=== PATIENT | female | born 1975 | race Caucasian/White ===

== ENCOUNTER 2016-07-02 14:56 | Emergency (ER) | payer BC, OTHER ==
[~2016-07-02] VITALS: Ht 160 cm; Wt 109.2 kg
[~2016-07-02 14:56] MED LIST: AMPH30CA3 PO; DULO60CA44 PO; LEVO200T PO
[2016-07-02 14:59] VITALS: TEMP 36.4; Ht 160 cm; Wt 109.2 kg
[2016-07-02] MEDS ORDERED: SULFAMETHOXAZOLE/TRIMETHOPRIM DS 800/160MG TAB PO STA (15:19)
[2016-07-02] MEDS ORDERED: SULF800T23 PO (15:28)
[2016-07-02] MEDS ORDERED: CEPH500C PO (15:28)
--- NOTE | 2016-07-02 15:28 | EMERGENCY ROOM VISIT NOTE ---
ED Visit Note First contact with patient: 15:10 Chief Complaint: Boil, On Groin Area History of Present Illness: Patient is a 40-year-old female who presents to the emergency Department for evaluation of a possible boil or abscess in the groin. She noticed redness swelling over the past 3 days. It has progressively worsened. There is been no discharge or drainage. She is had multiple abscesses in the past including the axilla as well as the groin area. She rates her discomfort as a 4/10. She is tried nothing [id number]-hlu-[id number] for her symptoms. She denies any fevers, chills, nausea, vomiting, diarrhea, hematochezia, melena, hematuria, vaginal discharge/drainage, nausea, or vomiting. She reports no history of Crohn's disease or ulcerative colitis. Medications: Reviewed and discussed with the patient. Allergies: Chlorhexidine PMH: No pertinent past medical history. SHx: Patient is a 40-year-old female who lives locally. ROS: All pertinent positive and negative review of systems are appropriately documented in the History of Present Illness. Physical Exam: VITAL SIGNS - Vital signs and Nursing Notes were reviewed. GENERAL -40-year-old female, well-developed, well-nourished, and in no acute distress. SKIN -small indurated area of erythema noted to the RIGHT suprapubic area. No fluctuance to palpation. No tenderness. No discharge or drainage. ABDOMEN - soft and nontender to palpation. Bowel sounds normoactive all 4 quadrants. NEURO - Patient is A&Ox3 and communicates appropriately with the provider. ED Course: Patient was seen and evaluated by myself. I had a discussion with patient regarding symptoms and management. Her abscess is not drainable at this point. It appears to be a cellulitis with just simply induration at this point. She' ll be covered with Keflex and Bactrim as she has apparently had a history of MRSA infections in the past. She will follow-up with her primary care provider for recheck or return for changing/worsening symptoms. Patient discharged home afebrile and in good condition. In the evaluation and treatment of this patient, the following differential diagnoses were considered: Fistula, abscess, amongst others. Impression: Cellulitis with Early Abscess to the RIGHT Groin Discharge Instructions: You were seen in the Emergency Department for Cellulitis and early Abscess to the RIGHT Groin area. You were prescribed Keflex and Bactrim to be taken as prescribed. Both of these medications are antibiotics. Stop these medications and contact a medical provider if you were to develop any significant adverse side effects including: wheezing, shortness of breath, passing out, vomiting, or a diffuse rash. Always take antibiotics as directed and COMPLETE the ENTIRE course regardless of the improvement of your symptoms. Look for signs of infection of the wound including: increased pain, swelling, foul discharge, streaking, or increased temperature. If any of these are noticed you should return to the Emergency Department for further assessment and treatment. For pain control, you can use the following [id number] medicines (if >12 yo): - Regular strength (325mg/tab) Tylenol (acetaminophen) 2 tabs every 4-6 hours as needed. Do not exceed 12 tablets in a 24 hour period. Avoid taking more than 4 grams (4000 mg) of Tylenol per day. This includes any other sources of acetaminophen you may take on a regular basis. - Regular strength (200 mg/tab) Advil (ibuprofen) 1-2 tabs every 4-6 hours as needed. Do not exceed a dose of 3200 mg per day. Return to the emergency department if your symptoms worsen despite treatment course outlined above. Problem List Medical Problems: (1) History of bronchitis Status: Chronic (2) History of pneumonia Status: Chronic (3) History of thyroid cancer Status: Chronic Surgical Problems: (1) History of thyroidectomy Status: Resolved (2) Status post left oophorectomy Status: Resolved Current/Historical Medications Scheduled Amphetamine-Dextroamphetamine 30MG (Adderall Xr 30MG), 30 MG PO DAILY Cephalexin Monohydrate (Keflex), 500 MG PO TID Duloxetine Hcl (Cymbalta), 60 MG PO DAILY Levothyroxine Sodium (Synthroid), 200 MCG PO DAILY Sulfa/Trimethoprim (Bactrim Ds 800MG/160MG), 1 TAB PO BID Allergies Coded Allergies: Chlorhexidine (Verified Allergy, Intermediate, RED RASH, 04/02/14) Vital Signs Date Time Temp Pulse Resp B/P Pulse Ox O2 Delivery O2 Flow Rate FiO2 07/02/16 15:42 125 18 137/101 99 07/02/16 14:59 36.4 113 20 127/93 98 Room Air Medications Administered Medications (Trade) Dose Ordered Sig/David Route Start Time Stop Time Status Last Admin Dose Admin Trimethoprim/ Sulfamethoxazole (Septra Ds 800/ 160MG Tab) 1 tab NOW STAT PO 07/02/16 15:19 07/02/16 15:20 DC 07/02/16 15:35 1 TAB Cephalexin Monohydrate (Keflex Cap) 500 mg NOW ONCE PO 07/02/16 15:30 07/02/16 15:31 DC 07/02/16 15:35 500 MG Departure Information Impression Primary Impression: Abscess or cellulitis of groin Dispostion Home / Self-Care Condition GOOD Prescriptions Sulfa/Trimethoprim (Bactrim Ds 800MG/160MG) Tab 1 TAB PO BID for 10 Days, #20 TAB Prov: Kings Jung PA-C 07/02/16 Cephalexin Monohydrate (Keflex) 500 Mg Cap 500 MG PO TID for 10 Days, #30 CAP Prov: Kings Jung PA-C 07/02/16 Referrals Tabby Swift C.R.N.PMolly (PCP) Patient Instructions My [facility] Additional Instructions You were seen in the Emergency Department for Cellulitis and early Abscess to the RIGHT Groin area. You were prescribed Keflex and Bactrim to be taken as prescribed. Both of these medications are antibiotics. Stop these medications and contact a medical provider if you were to develop any significant adverse side effects including: wheezing, shortness of breath, passing out, vomiting, or a diffuse rash. Always take antibiotics as directed and COMPLETE the ENTIRE course regardless of the improvement of your symptoms. Look for signs of infection of the wound including: increased pain, swelling, foul discharge, streaking, or increased temperature. If any of these are noticed you should return to the Emergency Department for further assessment and treatment. For pain control, you can use the following zngk-oue-oqhdcis medicines (if >12 yo): - Regular strength (325mg/tab) Tylenol (acetaminophen) 2 tabs every 4-6 hours as needed. Do not exceed 12 tablets in a 24 hour period. Avoid taking more than 4 grams (4000 mg) of Tylenol per day. This includes any other sources of acetaminophen you may take on a regular basis. - Regular strength (200 mg/tab) Advil (ibuprofen) 1-2 tabs every 4-6 hours as needed. Do not exceed a dose of 3200 mg per day. Return to the emergency department if your symptoms worsen despite treatment course outlined above.
[2016-07-02] MEDS ORDERED: CEPHALEXIN MONOHYDRATE 250 MG CAP PO ONE (15:30)
[2016-07-02 15:42] VITALS: BP 137/101; PULSE 125; O2SAT 99
== END 2016-07-02 15:44 | disposition home or self-care (01) ==
LOC: C.EDB 14:58 → C.EDD 15:44
DX: L03.314 Cellulitis of groin (principal); Z85.850 Personal history of malignant neoplasm of thyroid; Z98.890 Other specified postprocedural states; Z79.899 Other long term (current) drug therapy; Z88.8 Allergy status to other drugs, medicaments and biological substances

== ENCOUNTER 2016-10-20 12:56 | Emergency (ER) | payer OTHER ==
[~2016-10-20] VITALS: Ht 160 cm; Wt 116.5 kg
[2016-10-20 13:01] VITALS: BP 135/89; PULSE 97; TEMP 36.4; O2SAT 96; Ht 160 cm; Wt 116.5 kg
[2016-10-20] MEDS ORDERED: LIOT25TA8 PO (13:28)
[2016-10-20] MEDS ORDERED: AMPH30TA2 PO (13:28)
[2016-10-20] MEDS ORDERED: FLUO20CA35 PO (13:28)
[2016-10-20] MEDS ORDERED: AMPH20TA2 PO (13:28)
[2016-10-20] MEDS ORDERED: LEVO112T4 PO (13:28)
[2016-10-20] MEDS ORDERED: LIDO/EPINEPHRINE/SOD BICARB 20 ML VIAL INFIL ONE (14:00)
[2016-10-20] MEDS ORDERED: CEPHALEXIN 500MG HOME PACK 1 EA BTL PO ONE (15:00)
[2016-10-20] MEDS ORDERED: SEPTRA DS HOME PACK 1 EA VIAL PO ONE (15:00)
[2016-10-20] MEDS ORDERED: CEPH500C2 PO (15:04)
[2016-10-20] MEDS ORDERED: SULF800T23 PO (15:04)
--- NOTE | 2016-10-20 15:05 | EMERGENCY ROOM VISIT NOTE ---
ED Visit Note First contact with patient: 13:35 CHIEF COMPLAINT: Infection of the right cheek x 4 days HISTORY OF PRESENT ILLNESS: Patient is a 40-year-old white female who presents emergency department for evaluation of a painful, swollen and indurated area on the right cheek. She noticed it about 4 days ago, states that it looks like a small pimple, but it increased in size about 2 days ago. She is around that same time she noted 2 small areas in the right axilla and the right breast which also appears like early infections. She does have a history of skin abscesses, which have required I&D, they were primarily in her axilla. She had leftover amoxicillin 500 mg tablets, and took a total of 2 doses today. She has applied warm compresses. She is on [place] chronically for neck pain and states that this is not helping with her facial pain. There is a history of MRSA. There has been no drainage or discharge from the on her cheek, but there is some slight pointing and crusting noted. No fever or chills. There was no injury to the skin of the face recently. REVIEW OF SYSTEMS: Review of systems as per HPI. All other systems reviewed were negative. At least 6 systems reviewed. PMH: Electronic medical records are reviewed and summarized as above/below. See Problem List. SOCIAL HISTORY: Patient lives at home. Former smoker. PHYSICAL EXAM: Vital Signs: Reviewed Nurse's notes. GENERAL: He is, well-appearing 40-year-old white female who is awake and alert and in no acute distress. HEAD: Atraumatic, without temporal or scalp tenderness. EYES: PERRL, EOMI, no discharge or injection. EARS: Tympanic membranes intact, not inflamed, have normal contour. External canals clear. MOUTH: Mucous membranes moist, no lesions, tongue and gums appear normal. THROAT: No pharyngeal injection, exudates, or tonsillar hypertrophy. Airway is patent. NECK: Supple, nontender, no lymphadenopathy. FACE: On the right cheek near the jaw line the patient has a slightly erythematous, tender, indurated area consistent with a deep, closed comedone. There is slight pointing and crusting noted, no overt fluctuance. HEART: Regular rate and rhythm without murmur, ectopy, gallop, or rub. LUNGS: Clear to auscultation. INTEGUMENTARY: The patient has 2, small, red and indurated areas in the right Advil, and one on the anterior lateral right breast, both of which are about 1 cm in diameter. There is no fluctuance noted. EMERGENCY DEPARTMENT COURSE: The patient was seen and evaluated as above. Treatment options were outlined with her. She has a history of skin infections and abscesses, the lesions in her axillae and on her breasts are early and did not appear amenable to I&D. The area appears more inflamed and indurated, does not appear fluctuant to indicate I&D, and I discussed my reluctance to perform any type of open procedure given the location on her face due to cosmetic outcome. She is concerned regarding the cosmetic appearance, and would like me to try. I consented to a aspirate which she was agreeable to. The area was cleansed with Betadine 3 and draped sterilely. 1% plain buffered lidocaine was infiltrated in the area, then aspiration was attempted, with only scant, bloody material present. The area was palpated, and there was no deeper infection that was able to be expressed. The material exposed was sent for culture which is pending. Given her history of MRSA, she will be placed on Keflex and Bactrim. She was encouraged to apply warm compresses to the area. She is educated on the worrisome signs or symptoms for which she should return to the emergency department. She was discharged home in good condition. Problem List Medical Problems: (1) Abdominal pain Status: Resolved (2) Abdominal pain Status: Resolved (3) Abdominal pain Status: Resolved (4) Abscess or cellulitis of groin Status: Resolved (5) ADD (attention deficit disorder) Status: Chronic (6) Back strain Status: Resolved (7) Bilateral hand pain Status: Resolved (8) Constipation Status: Resolved (9) Degenerative cervical disc Status: Chronic (10) Dehydration Status: Resolved (11) Depressive disorder Status: Chronic (12) History of bronchitis Status: Resolved (13) History of pneumonia Status: Resolved (14) History of thyroid cancer Status: Resolved (15) Hypokalemia Status: Resolved (16) Pyelonephritis Status: Resolved (17) Pyelonephritis, acute Status: Resolved Surgical Problems: (1) History of thyroidectomy Status: Resolved (2) Status post left oophorectomy Status: Resolved Current/Historical Medications Scheduled Amphetamine-Dextroamphetamine 20MG (Adderall 20MG), 20 MG PO UD Amphetamine-Dextroamphetamine 30MG (Adderall 30MG), 30 MG PO QAM Cephalexin Monohydrate (Keflex), 500 MG PO QID Fluoxetine (Prozac), 60 MG PO DAILY Hydrocodone/Acetaminophen 5MG/325MG ([place] 5MG/325MG), 1 TAB PO BID Levothyroxine Sodium (Levothyroxine Sodium), 1 TAB PO DAILY Liothyronine Sodium (Cytomel), 25 MCG PO DAILY Sulfa/Trimethoprim (Bactrim Ds 800MG/160MG), 1 TAB PO BID Tizanidine (Zanaflex), Unknown Dose PO BID Allergies Coded Allergies: Chlorhexidine (Verified Allergy, Intermediate, RED RASH, 10/20/16) Vital Signs Date Time Temp Pulse Resp B/P (MAP) Pulse Ox O2 Delivery O2 Flow Rate FiO2 10/20/16 13:01 36.4 97 20 135/89 96 Medications Administered Medications (Trade) Dose Ordered Sig/David Route Start Time Stop Time Status Last Admin Dose Admin Cephalexin Monohydrate (Keflex 500MG Home Pack) 1 homepack NOW ONCE PO 10/20/16 15:00 10/20/16 15:01 DC 10/20/16 15:14 1 HOMEPACK Trimethoprim/ Sulfamethoxazole (Sulfameth/ Trimeth Ds 800/ 160MG Home Pack) 1 homepack UD ONCE PO 10/20/16 15:00 10/20/16 15:01 DC 10/20/16 15:14 1 HOMEPACK Departure Information Impression Primary Impression: Facial infection Prescriptions Sulfa/Trimethoprim (Bactrim Ds 800MG/160MG) Tab 1 TAB PO BID for 7 Days, #14 TAB Prov: Eryn Lauren PA 10/20/16 Cephalexin Monohydrate (KEFLEX) 500 Mg Cap 500 MG PO QID for 7 Days, #28 CAP Prov: Eryn Lauren PA 10/20/16 Referrals No Doctor, Assigned (PCP) Patient Instructions My [facility] Additional Instructions Cephalexin(Keflex) 500mg: Take one pill 3 times daily for 7 days for your skin infection. All antibiotics can cause diarrhea. If this occurs and you feel worse or it does not resolve in 1-2 days follow up with your doctor or return to the Emergency Department as this could be signs of serious underlying problems. Any medication can cause an allergic reaction, stop the pills immediately and return to the ER for rash, hives, breathing difficulties, or swelling. Trimethoprim-Sulfamethoxazole(Bactrim DS): Take one pill twice daily for 7 days for your skin infection. All antibiotics can cause diarrhea. If this occurs and you feel worse or it does not resolve in 1-2 days follow up with your doctor or return to the Emergency Department as this could be signs of serious underlying problems. Any medication can cause an allergic reaction, stop the pills immediately and return to the ER for rash, hives, breathing difficulties, or swelling. Ibuprofen(Motrin, Advil) may be used for fever or pain. Use 600mg every six hours as needed. Take with food. Avoid using more than 2400mg in a 24 hour period. Do not use 2400mg per day for more than three consecutive days without physician direction. Prolonged inappropriate use can lead to stomach upset or ulcers. (AND/OR) Acetaminophen(Tylenol) may be used for fever or pain. Use 1000mg every six hours as needed. Avoid using more than 3000mg in a 24 hour period. Warm compresses to the affected area 4 times daily for 15-20 minutes. Rest and drink plenty of fluids. Continue current medications. Return to the ER for severe pain, persistent fevers, spreading redness, or any worsening of your condition. Follow up with your primary physician within 2-3 days for a recheck of the current condition.
[2016-10-20] MEDS ORDERED: HYDR-5688 PO (15:11)
[2016-10-20] MEDS ORDERED: TIZA2CAP PO (15:11)
== END 2016-10-20 15:42 | disposition home or self-care (01) ==
LOC: C.EDB 12:58 → C.EDD 15:42
DX: L08.9 Local infection of the skin and subcutaneous tissue, unspecified (principal); F98.8 Other specified behavioral and emotional disorders with onset usually occurring in childhood and adolescence; F32.9 Major depressive disorder, single episode, unspecified; E89.0 Postprocedural hypothyroidism; Z86.14 Personal history of Methicillin resistant Staphylococcus aureus infection; Z87.891 Personal history of nicotine dependence; Z87.01 Personal history of pneumonia (recurrent); Z85.850 Personal history of malignant neoplasm of thyroid; Z98.890 Other specified postprocedural states; Z90.721 Acquired absence of ovaries, unilateral; Z79.899 Other long term (current) drug therapy

== ENCOUNTER 2020-04-04 14:21 | Observation (INO) ==
[2020-04-04] MEDS ORDERED: SODIUM CHLORIDE 0.9% 1000ML 1,000 ML IV ONE (15:32)
[2020-04-04] MEDS ORDERED: KETOROLAC TROMETHAMINE 15 MG/ML VIAL IV STA (15:32)
[2020-04-04 15:56] LABS: Basophils # (auto) 0.04 K/uL (0-0.2); Basophils % (auto) 0.5 %; Eosinophils # (auto) 0.21 K/uL (0-0.5); Eosinophils % (auto) 2.8 %; Hematocrit (blood only) 46.6 % (37-47); Hemoglobin 15.5 g/dL (12.0-16.0); Immature Granulocytes # (auto) 0.03 K/uL (0.00-0.02); Immature Granulocytes % (auto) 0.4 %; Lymphocytes # (auto) 1.76 K/uL (1.2-3.4); Lymphocytes % (auto) 23.5 %; Mean Corpuscular Hemoglobin 31.3 pg (25-34); Mean Corpuscular Hgb Conc 33.3 g/dL (32-36); Mean Platelet Volume 13.5 fL (7.4-10.4); Monocytes # (auto) 0.55 K/uL (0.11-0.59); Monocytes % (auto) 7.4 %; Neutrophils # (auto) 4.89 K/uL (1.4-6.5); Neutrophils % (auto) 65.4 %; Platelet Count 174 K/uL (130-400); RDW Coefficient of Variation 13.8 % (11.5-14.5); RDW Standard Deviation 47.2 fL (36.4-46.3); Red Blood Count 4.96 M/uL (4.2-5.4); White Blood Count 7.48 K/uL (4.8-10.8)
[2020-04-04 16:00] LABS: iSTAT Creatinine 0.8 mg/dl (0.6-1.3); iSTAT Ionized Calcium 1.17 mmol/l (1.12-1.32); iSTAT Potassium 3.9 mmol/L (3.3-5.0)
[2020-04-04 16:06] LABS: Partial Thromboplastin Time 28.9 Seconds (21.0-31.0); Prothrombin Time 10.4 Seconds (9.0-12.0)
[2020-04-04] MEDS ORDERED: OPTIRAY 320 100ml IV ONE (16:19)
[2020-04-04 16:21] LABS: Albumin Level 3.4 gm/dl (3.4-5.0); BUN Creatinine Ratio 17.6 (10-20); Bilirubin Direct 0.1 mg/dl (0-0.2); Calcium 8.9 mg/dl (8.5-10.1); Creatinine Clr Calc Pharmacy 101.8 ml/min; Est GFR (African American) 93.3; Est GFR (Non-African American) 80.5; Potassium 3.9 mmol/L (3.5-5.1)
[2020-04-04 16:24] LABS: Bilirubin,Total 0.4 mg/dl (0.2-1); Total Protein 7.1 gm/dl (6.4-8.2)
[2020-04-04] MEDS ORDERED: ONDANSETRON INJ 2 MG/ML 2 ML VIAL IV STA (16:38)
--- NOTE | 2020-04-04 16:39 | CT Scan Report ---
ABDOMEN AND PELVIS CT WITH IV CONTRAST CT DOSE: 1164.27 mGycm HISTORY: epigastric pain TECHNIQUE: Multiaxial CT images of the abdomen and pelvis were performed following the use of intrave nous contrast. A dose lowering technique was utilized adhering to the principles of ALARA. COMPARISON STUDY: Abdomen and pelvis CT 02/20/2014. FINDINGS: The lung bases are clear. No pneumoperitoneum. No pneumatosis. No fractures within the visu alized osseous structures. There is a fat and fluid containing supraumbilical hernia. The neck of the hernia measures 2.8 cm. The hernia sac measures approximately 4.2 cm. There is fat stranding both wi thin and adjacent to the hernia sac. This also mild fat stranding within the mid omentum deep to the hernia site. Therefore, these findings favor an incarcerated/strangulated fat-containing ventral belinda ia with a developing omental infarct. There is also a 1.2 cm fat-containing midline ventral hernia on image 151 which is superior to the supraumbilical hernia. Trace pelvic free fluid. This is likely ph ysiologic. The bladder is not well-distended but appears unremarkable. The uterus and right ovary are within normal limits. Multiple hypodensities within the liver. These likely represent cysts. The gal lbladder, spleen, adrenal glands, and pancreas are within normal limits. Normal caliber abdominal aor ta. No retroperitoneal lymphadenopathy. No hydronephrosis. A few subcentimeter hypodense lesions with in the left kidney are technically too small to characterize but statistically represent cysts. Bhargavi l right kidney. Colonic diverticulosis. No evidence for acute diverticulitis. No bowel wall thickenin g or obstruction. Normal appendix. IMPRESSION: 1. There is a fat and fluid containing supraumbilical hernia which measures approximately 4.2 cm. The re is fat stranding both within and adjacent to the hernia sac. This also mild fat stranding within t he mid omentum deep to the hernia site. Therefore, these findings favor an incarcerated/strangulated fat-containing ventral hernia with a developing omental infarct. 2. Additional findings as described above. ACT 112: Negative or not required by law. Electronically signed by: Eliud Carter M.D. 04/04/2020 4:38 PM
[2020-04-04] MEDS ORDERED: cefOXitin 2,000 MG in DEXTROSE 5% 50 ML IV STA (17:23)
--- NOTE | 2020-04-04 17:29 | History & Physical Report ---
Date of Service April 04, 2020 Assessment & Plan (1) Incarcerated hernia: Patient with incarcerated, strangulated ventral hernia just above the umbilicus Plan is for open ventral hernia repair most likely without mesh She will need a least observation and possibly 1 to 2 days admission History of Present Illness Primary Care Provider: Edward Spicer MD 44-year-old female with acute abdominal pain just above the umbilicus CT scan shows what appears to be an incarcerated ventral hernia with possible strangulation and fluid and inflammation present She had laparoscopy in the distant past, no other operations Allergies Allergy/AdvReac Type Severity Reaction Status Date / Time chlorhexidine Allergy Intermediate RED RASH Verified 04/04/20 15:52 Home Medications Medication Instructions Recorded Confirmed Type fluoxetine 40 mg capsule 40 mg PO HS 11/14/19 04/04/20 History levothyroxine 150 mcg capsule 150 mcg PO QAM 11/14/19 04/04/20 History topiramate 100 mg tablet 100 mg PO BID 11/14/19 04/04/20 History albuterol sulfate 2 puff INHALATION Q6H PRN 11/22/19 04/04/20 History buprenorphine-naloxone 1 - 2 tab SUBLINGUAL DAILY 04/04/20 04/04/20 History sucralfate 1 g PO QID 04/04/20 04/04/20 History Past Med/Surg History Medical History (Updated 04/04/20 @ 17:27 by Paul Story MD, FACS) Abnormal weight gain Asthma inhaler prn Back strain Bilateral hand pain Constipation Degenerative disc disease Depression Disturbance of sleep Edema History of bronchitis History of pneumonia Hot flashes due to menopause Hx of papillary thyroid carcinoma 2012--sx only Hypokalemia Hypothyroidism, postablative Menopause Morbid obesity with BMI of 45.0-49.9, adult Obesity Sleep apnea ? scheduled for sleep study test soon Surgical History History of carpal tunnel surgery of right wrist History of colonoscopy with polypectomy History of esophagogastroduodenoscopy (EGD) History of left oophorectomy History of open reduction and internal fixation (ORIF) procedure left humerus--hardware in place History of ovarian cystectomy History of thyroidectomy, total 2012--d/t cancer History of tooth extraction Family History Father Family history of diabetes mellitus Other No family history of adverse response to anesthesia Social History (System 11/07/19 @ 10:43 by Fadia Soares) Smoking Status: Current every day smoker Cigarettes Per Day: 20+; Second Hand Exposure: Yes (parents smoked); Hx Alcohol Use: Yes Alcohol type: beer Hx Substance Use: Yes (medical marijuana) Preferred Language: Czech Communication Ability: Effective Cardiac Rn Required: No Beliefs That Will Affect Care: None Current Living Situation: Alone Feels Safe at Home: Yes Assistive Devices: Denture - Upper, Denture - Lower and Glasses Review of Systems All systems reviewed & are unremarkable except as noted in HPI & below Physical Exam Physical Exam: She is awake and alert in no distress Her abdomen is soft but she does have a palpable mass above the umbilicus with significant tenderness Constitutional: well developed and well nourished; no acute distress Eyes: + anicteric sclerae Respiratory: normal respiratory effort; no respiratory distress Cardiovascular: Rate/Rhythm: regular rate and regular rhythm Musculoskeletal: Head/Neck/Chest: normocephalic Skin: no rashes, warm and dry Neurologic: awake Psychiatric: Orientation: alert Results & Data ([facility]) Vital Signs (Past 12 Hours) Vital Signs Temp Pulse Pulse Resp BP BP Pulse Ox 04/04/20 17:00 59 L 14 115/70 96 04/04/20 16:00 60 14 112/61 97 04/04/20 14:27 36.5 C 95 H 17 133/86 96 I did review her CAT scan
--- NOTE | 2020-04-04 17:35 | Emergency Department Note ---
History of Present Illness General Chief Complaint: Abdominal Pain Stated Complaint: ABD PAIN, CHILLS, COVID EXPOSURE, SOB Time Seen by Provider: 04/04/20 15:17 History of Present Illness Provider Complaint: abdominal pain Onset (ago): 2 day(s) Pain Consistency: intermittent Location: periumbilical Radiation: none Severity: mild Maximum Pain Intensity: 4 Current Pain Intensity: 4 Quality: + aching and + burning Relieved By: + nothing Context: + sick contacts (Friend has COVID-19.); no foreign travel, no possible food poisoning, no recent antibiotic use, no recent surgery/procedure and no recent injury Associated Symptoms: + nausea; no vomiting, no fever, no chills, no constipation, no dysuria, no hematemesis, no hematochezia, no melena and no hematuria Patient states she has a history of a hernia in her abdomen but is not sure where it is. Home Medications Medication Instructions Recorded Confirmed Type fluoxetine 40 mg capsule 40 mg PO HS 11/14/19 04/04/20 History levothyroxine 150 mcg capsule 150 mcg PO QAM 11/14/19 04/04/20 History topiramate 100 mg tablet 100 mg PO BID 11/14/19 04/04/20 History albuterol sulfate 2 puff INHALATION Q6H PRN 11/22/19 04/04/20 History buprenorphine-naloxone 1 - 2 tab SUBLINGUAL DAILY 04/04/20 04/04/20 History sucralfate 1 g PO QID 04/04/20 04/04/20 History Allergies Allergy/AdvReac Type Severity Reaction Status Date / Time chlorhexidine Allergy Intermediate RED RASH Verified 04/04/20 15:52 Past Med/Surg History Medical History (Updated 04/04/20 @ 20:12 by Shelton Fatima) Abnormal weight gain Asthma inhaler prn Back strain Bilateral hand pain Constipation Degenerative disc disease Depression Disturbance of sleep Edema History of bronchitis History of pneumonia Hot flashes due to menopause Hx of papillary thyroid carcinoma 2012--sx only Hypokalemia Hypothyroidism, postablative Menopause Morbid obesity with BMI of 45.0-49.9, adult Obesity Sleep apnea ? scheduled for sleep study test soon Surgical History History of carpal tunnel surgery of right wrist History of colonoscopy with polypectomy History of esophagogastroduodenoscopy (EGD) History of left oophorectomy History of open reduction and internal fixation (ORIF) procedure left humerus--hardware in place History of ovarian cystectomy History of thyroidectomy, total 2012--d/t cancer History of tooth extraction Family History Father Family history of diabetes mellitus Other No family history of adverse response to anesthesia Social History Smoking Status: Current every day smoker Cigarettes Per Day: 20+; Second Hand Exposure: Yes (parents smoked); Hx Alcohol Use: Yes Alcohol type: beer Hx Substance Use: Yes (medical marijuana) Preferred Language: Mongolian Communication Ability: Effective 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 Beliefs That Will Affect Care: None Current Living Situation: Alone Feels Safe at Home: Yes Assistive Devices: Denture - Upper, Denture - Lower and Glasses Review of Systems A total of 10 systems reviewed and were otherwise negative Physical Exam Vital Signs: Vital Signs - 24 hr 04/04/20 14:27 04/04/20 16:00 04/04/20 17:00 Temperature 36.5 C Temperature Source Temporal Artery Sc an Pulse Rate 95 H 59 L Pulse Rate [Apical ] Pulse Rate [Finger ] 60 Pulse Rate from Sp O2 Sensor 57 L Pulse Rhythm [Apic al] Pulse Strength [Fi nger] Respiratory Rate 17 14 14 Respiratory Effort / Characteristics Non-Labored Non-Labored Sponta neous Respiratory Depth Normal Normal Respiratory Patter n Regular Blood Pressure 133/86 115/70 Blood Pressure [Ri ght Arm] 112/61 Blood Pressure Gayathri n 101 76 Blood Pressure Gayathri n [Right Arm] 78 Blood Pressure Pos ition Sitting Blood Pressure Pos ition [Right Arm] Pulse Oximetry 96 97 96 Oxygen Delivery Me thod Room Air Room Air Room Air Oxygen Flow Rate Sepsis Recent Feve r Within 48 Hours No Sepsis New/Unexpla ined Change in Men javier Status No Sepsis Action Take n by Nursing No Action Required 04/04/20 17:30 04/04/20 17:42 04/04/20 17:54 Temperature 36.7 C Temperature Source Oral Pulse Rate 62 Pulse Rate [Apical ] Pulse Rate [Finger ] 60 Pulse Rate from Sp O2 Sensor Pulse Rhythm [Apic al] Pulse Strength [Fi nger] Normal Respiratory Rate 22 16 Respiratory Effort / Characteristics Non-Labored Sponta neous Respiratory Depth Normal Respiratory Patter n Regular Blood Pressure 125/81 Blood Pressure [Ri ght Arm] 152/59 H Blood Pressure Gayathri n 104 Blood Pressure Gayathri n [Right Arm] 90 Blood Pressure Pos ition Blood Pressure Pos ition [Right Arm] Semi-fowlers Pulse Oximetry 96 Oxygen Delivery Me thod Room Air Room Air Oxygen Flow Rate Sepsis Recent Feve r Within 48 Hours Sepsis New/Unexpla ined Change in Men javier Status Sepsis Action Take n by Nursing 04/04/20 19:43 04/04/20 19:50 04/04/20 20:00 Temperature 36.5 C Temperature Source Temporal Artery Sc an Temporal Artery Sc an Temporal Artery Sc an Pulse Rate Pulse Rate [Apical ] 64 58 L 59 L Pulse Rate [Finger ] Pulse Rate from Sp O2 Sensor Pulse Rhythm [Apic al] Regular Regular Regular Pulse Strength [Fi nger] Respiratory Rate 16 14 15 Respiratory Effort / Characteristics Non-Labored Sponta neous Non-Labored Sponta neous Non-Labored Sponta neous Respiratory Depth Normal Normal Normal Respiratory Patter n Regular Regular Regular Blood Pressure Blood Pressure [Ri ght Arm] 123/88 116/62 115/65 Blood Pressure Gayathri n Blood Pressure Gayathri n [Right Arm] 99 80 81 Blood Pressure Pos ition Blood Pressure Pos ition [Right Arm] Semi-fowlers Semi-fowlers Semi-fowlers Pulse Oximetry 100 100 100 Oxygen Delivery Me thod Oxymask Oxymask Oxymask Oxygen Flow Rate 10 10 10 Sepsis Recent Feve r Within 48 Hours Sepsis New/Unexpla ined Change in Men javier Status Sepsis Action Take n by Nursing 04/04/20 20:10 Temperature Temperature Source Temporal Artery Sc an Pulse Rate Pulse Rate [Apical ] 61 Pulse Rate [Finger ] Pulse Rate from Sp O2 Sensor Pulse Rhythm [Apic al] Regular Pulse Strength [Fi nger] Respiratory Rate 14 Respiratory Effort / Characteristics Non-Labored Sponta neous Respiratory Depth Normal Respiratory Patter n Regular Blood Pressure Blood Pressure [Ri ght Arm] 103/62 Blood Pressure Gayathri n Blood Pressure Gayathri n [Right Arm] 75 Blood Pressure Pos ition Blood Pressure Pos ition [Right Arm] Semi-fowlers Pulse Oximetry 100 Oxygen Delivery Me thod Oxymask Oxygen Flow Rate 10 Sepsis Recent Feve r Within 48 Hours Sepsis New/Unexpla ined Change in Men javier Status Sepsis Action Take n by Nursing Physical Exam: Physical Exam GENERAL: She is oriented to person, place, and time. She appears well-developed and well-nourished. She does not appear distressed. HENT: Exam performed. -Head: Normocephalic and atraumatic. -Right Ear: External ear normal. No mastoid tenderness. -Left Ear: External ear normal. No mastoid tenderness. -Mouth/Throat: The oropharynx is clear and moist. No trismus in the jaw. No dental abscesses or uvula swelling. No oropharyngeal exudate or tonsillar abscesses. EYES: Conjunctivae and EOM are normal. Pupils are equal, round, and reactive to light. Right eye exhibits no discharge. Left eye exhibits no discharge. No scleral icterus. NECK: Normal range of motion. Neck supple. No JVD present. No spinous process tenderness present. No carotid bruit present. No rigidity. No tracheal deviation and normal range of motion present. No Brudzinski's sign and no Kernig's sign noted. CV: Normal rate, regular rhythm, normal heart sounds and intact distal pulses. There is no peripheral edema. Palpable radial pulses bue. PULM/CHEST: Effort normal and breath sounds normal. No respiratory distress. No stridor. She has no wheezes. She has no rales. -Chest Wall: She exhibits no tenderness. ABD: The abdomen is soft and morbidly obese. Bowel sounds are normal. She has no distension. No mass is present no palpable hernia. There is no tenderness. There is no rebound, no guarding, no Martines's sign and no tenderness at McBurney's point. Rovsig negative MUSC/SKEL: Normal range of motion. There is no peripheral edema, tenderness or deformity. LYMPH: No cervical adenopathy. NEURO: She is alert and oriented to person, place, and time. She has normal strength. No cranial nerve deficit or sensory deficit. Coordination and gait normal. GCS eye subscore is 4. GCS verbal subscore is 5. GCS motor subscore is 6. Cerebellar tests wnl. SKIN: Skin is warm and dry. She is not diaphoretic. PSYCH: She has a normal mood and affect. Behavior is normal. Judgment and thought content normal. Course Course 1735: The patient was evaluated in room B12. A complete history and physical exam was performed. 170: Vital signs stable. Covid negative. Labs within normal limits. CT shows incarcerated/strangulated fat-containing ventral hernia with developing omental infarct. Case discussed with general surgery Dr. Story who states he will e valuate the patient. Administered Medications Hydromorphone HCl (Hydromorphone Inj 1 Mg/Ml Syringe) 0.25 mg IV Q5M PRN PRN Reason: PACU Use Only-Pain Stop: 04/05/20 01:58 Last Admin: 04/04/20 20:09 Dose: 0.25 mg Documented by: [id number] Admin: 04/04/20 20:04 Dose: 0.25 mg Documented by: [id number] Sodium Chloride (Nss 1000ml) 1,000 mls @ 999 mls/hr IV .Q1H1M ONE Stop: 04/04/20 16:32 Last Infusion: 04/04/20 17:32 Dose: 0 mls/hr Documented by: [id number] Admin: 04/04/20 16:02 Dose: 999 mls/hr Documented by: [id number] Cefoxitin Sodium 2,000 mg/ (Dextrose) 60 mls @ 100 mls/hr IV NOW STA Stop: 04/04/20 17:58 Last Admin: 04/04/20 18:13 Dose: 100 mls/hr Documented by: [id number] Cefazolin Sodium (Ancef 2000mg) 2,000 mg in 15 mls @ 3.75 mls/min IV ONCE ONE Stop: 04/04/20 18:50 Last Admin: 04/04/20 18:12 Dose: 3.75 mls/min Documented by: [id number] Acetaminophen (Ofirmev) 1,000 mg in 100 mls @ 400 mls/hr IV NOW STA Stop: 04/04/20 19:40 Last Admin: 04/04/20 20:00 Dose: 400 mls/hr Documented by: [id number] Ioversol (Ioversol 100ml) 94 ml IV ONCE ONE Stop: 04/04/20 16:20 Last Admin: 04/04/20 16:19 Dose: 94 ml Documented by: [id number] Ondansetron HCl (Ondansetron Inj 2 Mg/Ml 2 Ml Vial) 4 mg IV NOW STA Stop: 04/04/20 16:39 Last Admin: 04/04/20 16:52 Dose: 4 mg Documented by: [id number] Discontinued Medications Bupivacaine HCl (Bupivacaine 0.5 % 5 Mg/1 Ml Mpf 30ml Vial) Confirm Administered Dose 30 ml .ROUTE .[employer] ONE Stop: 04/04/20 18:13 Last Admin: 04/04/20 19:18 Dose: 7 ml Documented by: [id number] Cefazolin Sodium (Cefazolin 250 Mg/Ml 1 Gm Vial) Confirm Administered Dose 1,000 mg .ROUTE .Atrenta ONE Stop: 04/04/20 18:14 Last Admin: 04/04/20 18:47 Dose: Not Given Documented by: [id number] Ketorolac Tromethamine (Ketorolac Tromethamine 15 Mg/Ml Vial) 15 mg IV NOW STA Stop: 04/04/20 15:33 Last Admin: 04/04/20 16:03 Dose: 15 mg Documented by: [id number] Ondansetron HCl (Ondansetron Inj 2 Mg/Ml 2 Ml Vial) Confirm Administered Dose 4 mg .ROUTE .Atrenta ONE Stop: 04/04/20 19:58 Last Admin: 04/04/20 20:01 Dose: 4 mg Documented by: [id number] Medical Decision Making Laboratory Data Result diagrams: 04/04/20 15:37 04/04/20 15:37 Lab Results 04/04/20 04/04/20 04/04/20 Range/Units 15:37 15:37 15:37 WBC 7.48 (4.8-10.8) K/uL RBC 4.96 (4.2-5.4) M/uL Hgb 15.5 (12.0-16.0) g/dL POC Hgb (12.0-16.0) g/dl Hct 46.6 (37-47) % POC Hct (37-47) % MCV 94.0 (80-100) fL MCH 31.3 (25-34) pg MCHC 33.3 (32-36) g/dL RDW Std Deviation 47.2 H (36.4-46.3) fL RDW Coeff of Maria E 13.8 (11.5-14.5) % Plt Count 174 (130-400) K/uL MPV 13.5 H (7.4-10.4) fL Immature Gran % (Auto) 0.4 % Neut % (Auto) 65.4 % Lymph % (Auto) 23.5 % [place] % (Auto) 7.4 % Eos % (Auto) 2.8 % Baso % (Auto) 0.5 % Neut # (Auto) 4.89 (1.4-6.5) K/uL Lymph # (Auto) 1.76 (1.2-3.4) K/uL [place] # (Auto) 0.55 (0.11-0.59) K/uL Eos # (Auto) 0.21 (0-0.5) K/uL Baso # (Auto) 0.04 (0-0.2) K/uL Immature Gran # (Auto) 0.03 H (0.00-0.02) K/uL PT 10.4 (9.0-12.0) Seconds INR 1.0 (0.9-1.1) APTT 28.9 (21.0-31.0) Seconds PTT Ratio 1.0 POC Sodium (135-144) mmol/L Sodium 140 (136-145) mmol/L POC Potassium (3.3-5.0) mmol/L Potassium 3.9 (3.5-5.1) mmol/L POC Chloride (101-112) mmol/L Chloride 110 H (98-107) mmol/L Carbon Dioxide 23 (21-32) mmol/L POC Total CO2 (24-31) mmol/L Anion Gap 7.0 (3-11) POC Anion Gap (16-25) mmol/L POC BUN (7-18) mg/dl BUN 15 (7-18) mg/dl Creatinine 0.88 (0.6-1.2) mg/dl POC Creatinine (0.6-1.3) mg/dl Est Cr Clr Drug Dosing 101.8 ml/min Est GFR ( Amer) 93.3 Est GFR (Non-Af Amer) 80.5 BUN/Creatinine Ratio 17.6 (10-20) Glucose 84 (70-99) mg/dl POC Glucose (other) (70-99) mg/dl Calcium 8.9 (8.5-10.1) mg/dl POC Ioniz Calcium Simon (1.12-1.32) mmol/l Total Bilirubin 0.4 (0.2-1) mg/dl Direct Bilirubin 0.1 (0-0.2) mg/dl AST 15 (15-37) U/L ALT 20 (12-78) U/L Alkaline Phosphatase 87 (45-117) U/L Total Protein 7.1 (6.4-8.2) gm/dl Albumin 3.4 (3.4-5.0) gm/dl Lipase 160 (73-393) U/L COVID-19 Eval Order SARS-CoV-2, RNA, NAAT (NEGATIVE) 04/04/20 04/04/20 04/04/20 Range/Units 15:48 16:07 16:07 WBC (4.8-10.8) K/uL RBC (4.2-5.4) M/uL Hgb (12.0-16.0) g/dL POC Hgb 16.0 (12.0-16.0) g/dl Hct (37-47) % POC Hct 47 (37-47) % MCV (80-100) fL MCH (25-34) pg MCHC (32-36) g/dL RDW Std Deviation (36.4-46.3) fL RDW Coeff of Maria E (11.5-14.5) % Plt Count (130-400) K/uL MPV (7.4-10.4) fL Immature Gran % (Auto) % Neut % (Auto) % Lymph % (Auto) % [place] % (Auto) % Eos % (Auto) % Baso % (Auto) % Neut # (Auto) (1.4-6.5) K/uL Lymph # (Auto) (1.2-3.4) K/uL [place] # (Auto) (0.11-0.59) K/uL Eos # (Auto) (0-0.5) K/uL Baso # (Auto) (0-0.2) K/uL Immature Gran # (Auto) (0.00-0.02) K/uL PT (9.0-12.0) Seconds INR (0.9-1.1) APTT (21.0-31.0) Seconds PTT Ratio POC Sodium 138 (135-144) mmol/L Sodium (136-145) mmol/L POC Potassium 3.9 (3.3-5.0) mmol/L Potassium (3.5-5.1) mmol/L POC Chloride 107 (101-112) mmol/L Chloride (98-107) mmol/L Carbon Dioxide (21-32) mmol/L POC Total CO2 22 L (24-31) mmol/L Anion Gap (3-11) POC Anion Gap 14.0 L (16-25) mmol/L POC BUN 16 (7-18) mg/dl BUN (7-18) mg/dl Creatinine (0.6-1.2) mg/dl POC Creatinine 0.8 (0.6-1.3) mg/dl Est Cr Clr Drug Dosing ml/min Est GFR ( Amer) Est GFR (Non-Af Amer) BUN/Creatinine Ratio (10-20) Glucose (70-99) mg/dl POC Glucose (other) 85 (70-99) mg/dl Calcium (8.5-10.1) mg/dl POC Ioniz Calcium Simon 1.17 (1.12-1.32) mmol/l Total Bilirubin (0.2-1) mg/dl Direct Bilirubin (0-0.2) mg/dl AST (15-37) U/L ALT (12-78) U/L Alkaline Phosphatase (45-117) U/L Total Protein (6.4-8.2) gm/dl Albumin (3.4-5.0) gm/dl Lipase (73-393) U/L COVID-19 Eval Order Covid19 IDNow [facility] SARS-CoV-2, RNA, NAAT NEGATIVE (NEGATIVE) Imaging Data Radiologist's Impression: ABDOMEN AND PELVIS CT WITH IV CONTRAST CT DOSE: 1164.27 mGycm HISTORY: epigastric pain TECHNIQUE: Multiaxial CT images of the abdomen and pelvis were performed following the use of intravenous contrast. A dose lowering technique was utilized adhering to the principles of ALARA. COMPARISON STUDY: Abdomen and pelvis CT 02/20/2014. FINDINGS: The lung bases are clear. No pneumoperitoneum. No pneumatosis. No fractures within the visualized osseous structures. There is a fat and fluid containing supraumbilical hernia. The neck of the hernia measures 2.8 cm. The hernia sac measures approximately 4.2 cm. There is fat stranding both within and adjacent to the hernia sac. This also mild fat stranding within the mid omentum deep to the hernia site. Therefore, these findings favor an incarcerated/strangulated fat-containing ventral hernia with a developing omental infarct. There is also a 1.2 cm fat-containing midline ventral hernia on image 151 which is superior to the supraumbilical hernia. Trace pelvic free fluid. This is likely physiologic. The bladder is not well-distended but appears unremarkable. The uterus and right ovary are within normal limits. Multiple hypodensities within the liver. These likely represent cysts. The gallbladder, spleen, adrenal glands, and pancreas are within normal limits. Normal caliber abdominal aorta. No retroperitoneal lymphadenopathy. No hydronephrosis. A few subcentimeter hypodense lesions within the left kidney are technically too small to characterize but statistically represent cysts. Normal right kidney. Colonic diverticulosis. No evidence for acute diverticulitis. No bowel wall thickening or obstruction. Normal appendix. IMPRESSION: 1. There is a fat and fluid containing supraumbilical hernia which measures approximately 4.2 cm. There is fat stranding both within and adjacent to the hernia sac. This also mild fat stranding within the mid omentum deep to the hernia site. Therefore, these findings favor an incarcerated/strangulated fat- containing ventral hernia with a developing omental infarct. 2. Additional findings as described above. ACT 112: Negative or not required by law. Electronically signed by: Eliud Carter M.D. 04/04/2020 4:38 PM Dictated: 04/04/201629Transcribed: 04/04/[address] [facility] Narrative Vital signs stable. Covid negative. Labs within normal limits. CT shows i ncarcerated/strangulated fat-containing ventral hernia with developing omental infarct. Case discussed with general surgery Dr. Story who states he will evaluate the patient. Impression & Plan Incarcerated hernia Discharge Plan Visit Data Chief Complaint: Abdominal Pain Stated Complaint: ABD PAIN, CHILLS, COVID EXPOSURE, SOB ED Provider: Shelton Fatima Discharge Problem: Incarcerated hernia Patient Disposition: Admitted As Inpatient Discharge Instructions Interventions: ED Discharge Assessment Last Done: 04/04/20 17:42
[2020-04-04] MEDS ORDERED: DEXAMETHASONE SOD INJ 4 MG/ML VIAL ONE ×2 (17:43→18:21)
[2020-04-04] MEDS ORDERED: ROCURONIUM BROMIDE 10 MG/ML 5 ML VIAL IV ONE (17:43)
[2020-04-04] MEDS ORDERED: ONDANSETRON INJ 2 MG/ML 2 ML VIAL ONE ×2 (17:43→19:57)
[2020-04-04] MEDS ORDERED: PROPOFOL IV EMULSION 10 MG/ML 20 ML VIAL IV ONE (17:43)
[2020-04-04] MEDS ORDERED: SUCCINYLCHOLINE CHLORIDE 20 MG/ML 10 ML VIAL IV ONE (17:43)
[2020-04-04] MEDS ORDERED: fentaNYL citrate 100 MCG/2 ML VIAL ONE ×3 (17:43→19:38)
[2020-04-04] MEDS ORDERED: LIDOCAINE HCL 2% 2 ML VIAL/AMP(20MG/ML) INFIL ONE (17:43)
[2020-04-04] MEDS ORDERED: MIDAZOLAM HCL 1 MG/ML 2ML VIAL ONE (17:43)
[2020-04-04] MEDS ORDERED: fentaNYL citrate 100 MCG/2 ML VIAL IV PRN ×2 (17:57→20:07)
[2020-04-04] MEDS ORDERED: ONDANSETRON INJ 2 MG/ML 2 ML VIAL IV PRN ×3 (17:57→21:14)
[2020-04-04] MEDS ORDERED: MEPERIDINE HCL 25 MG/ML CARP/VIAL IV PRN ×2 (17:57→20:07)
[2020-04-04] MEDS ORDERED: HYDROmorphone INJ 1 MG/ML SYRINGE IV PRN (17:57)
[2020-04-04] MEDS ORDERED: LABETALOL HCL IV 5 MG/ML 20ML IV PRN ×2 (17:57→20:07)
[2020-04-04] MEDS ORDERED: PHENYLEPHRINE 100MCG/ML 5ML SYR IV PRN ×2 (17:57→20:07)
[2020-04-04] MEDS ORDERED: ePHEDrine sulfate 50 MG/ML AMP IV PRN ×2 (17:57→20:07)
[2020-04-04] MEDS ORDERED: ATROPINE SULFATE 0.1 MG/ML 10ML SYR IV PRN ×2 (17:57→20:03)
--- NOTE | 2020-04-04 17:59 | Anesthesiology Consultation ---
Date of Service April 04, 2020 Covid 19 negative today. Assessment & Plan (1) Encounter for pre-operative examination: Chart Review Chart Review: Acceptable Risk for Surgery and Patient NOT seen in Pre Admission Testing Consults Requested none History Surgery Operation Date: 04/04/20 17:00 Proposed Procedures p Strangulated Ventral Hernia Repair - Paul Story MD, FACS Height/Weight Height: 5 ft 3 in Weight: 117 kg Allergies Allergy/AdvReac Type Severity Reaction Status Date / Time chlorhexidine Allergy Intermediate RED RASH Verified 04/04/20 15:52 Medications Home Medications Medication Instructions Recorded Confirmed Last Taken fluoxetine 40 mg capsule 40 mg PO HS 11/14/19 04/04/20 04/03/20 levothyroxine 150 mcg capsule 150 mcg PO QAM 11/14/19 04/04/20 04/04/20 topiramate 100 mg tablet 100 mg PO BID 11/14/19 04/04/20 04/04/20 albuterol sulfate 2 puff INHALATION Q6H PRN 11/22/19 04/04/20 11/24/19 08:30 buprenorphine-naloxone 1 - 2 tab SUBLINGUAL DAILY 04/04/20 04/04/20 04/04/20 sucralfate 1 g PO QID 04/04/20 04/04/20 04/03/20 Active Medications Generic Name Dose Route Start Last Admin Trade Name Freq PRN Reason Stop Dose Admin Sodium Chloride 1,000 mls @ 999 mls/hr 04/04/20 15:32 04/04/20 17:32 Nss 1000ml IV 04/04/20 16:32 Infused .Q1H1M ONE Infusion Ioversol 94 ml 04/04/20 16:19 04/04/20 16:19 Ioversol 100ml IV 04/04/20 16:20 94 ml ONCE ONE Administration Ketorolac Tromethamine 15 mg 04/04/20 15:32 04/04/20 16:03 Ketorolac Tromethamine 15 Mg/Ml Vial IV 04/04/20 15:33 15 mg NOW STA Administration Ondansetron HCl 4 mg 04/04/20 16:38 04/04/20 16:52 Ondansetron Inj 2 Mg/Ml 2 Ml Vial IV 04/04/20 16:39 4 mg NOW STA Administration NPO Date Last Intake of Fluids: 04/04/20 Time Last Intake of Fluids: 14:00 Last Intake of Fluids Comment: sips of water today Date Last Intake of Solids: 04/03/20 Time Last Intake of Solids: 22:00 Past Medical History Medical History (Updated 04/04/20 @ 17:59 by Eliud Cid MD) Abnormal weight gain Asthma inhaler prn Back strain Bilateral hand pain Constipation Degenerative disc disease Depression Disturbance of sleep Edema History of bronchitis History of pneumonia Hot flashes due to menopause Hx of papillary thyroid carcinoma 2012--sx only Hypokalemia Hypothyroidism, postablative Menopause Morbid obesity with BMI of 45.0-49.9, adult Obesity Sleep apnea ? scheduled for sleep study test soon Past Family History Family History Father Family history of diabetes mellitus Other No family history of adverse response to anesthesia Past Surgical History Surgical History History of carpal tunnel surgery of right wrist History of colonoscopy with polypectomy History of esophagogastroduodenoscopy (EGD) History of left oophorectomy History of open reduction and internal fixation (ORIF) procedure left humerus--hardware in place History of ovarian cystectomy History of thyroidectomy, total 2012--d/t cancer History of tooth extraction Social History Smoking Status: Current every day smoker tobacco type: cigarettes Smoking cigarettes per day: 20+ Hx Alcohol Use: Yes Alcohol type: beer alcohol intake frequency: a few times a week Hx Substance Use: Yes (medical marijuana) substance use type: marijuana Physical Exam Vital Signs Last Vital Signs Temp 36.7 C 04/04/20 17:54 Pulse 60 04/04/20 17:54 Resp 16 04/04/20 17:54 BP 152/59 H 04/04/20 17:54 Pulse Ox 96 04/04/20 17:54 Testing Laboratory Results 04/04/20 15:37 04/04/20 15:37 PT 10.4 Seconds (9.0-12.0) 04/04/20 15:37 INR 1.0 (0.9-1.1) 04/04/20 15:37 APTT 28.9 Seconds (21.0-31.0) 04/04/20 15:37 04/04/20 15:48 POC Glucose (other) 85 Other Testing ABDOMEN AND PELVIS CT WITH IV CONTRAST CT DOSE: 1164.27 mGycm HISTORY: epigastric pain TECHNIQUE: Multiaxial CT images of the abdomen and pelvis were performed following the use of intravenous contrast. A dose lowering technique was utiliz ed adhering to the principles of ALARA. COMPARISON STUDY: Abdomen and pelvis CT 02/20/2014. FINDINGS: The lung bases are clear. No pneumoperitoneum. No pneumatosis. No fractures within the visualized osseous structures. There is a fat and fluid containing supraumbilical hernia. The neck of the hernia measures 2.8 cm. The hernia sac measures approximately 4.2 cm. There is fat stranding both within and adjacent to the hernia sac. This also mild fat stranding within the mid omentum deep to the hernia site. Therefore, these findings favor an incarcerated/strangulated fat-containing ventral hernia with a developing omental infarct. There is also a 1.2 cm fat-containing midline ventral hernia on image 151 which is superior to the supraumbilical hernia. Trace pelvic free fluid. This is likely physiologic. The bladder is not well-distended but appears unremarkable. The uterus and right ovary are within normal limits. Multiple hypodensities within the liver. These likely represent cysts. The gallbladder, spleen, adrenal glands, and pancreas are within normal limits. Normal caliber abdominal aorta. No retroperitoneal lymphadenopathy. No hydronephrosis. A few subcentimeter hypodense lesions within the left kidney are technically too small to characterize but statistically represent cysts. Normal right kidney. Colonic diverticulosis. No evidence for acute diverticulitis. No bowel wall thickening or obstruction. Normal appendix. IMPRESSION: 1. There is a fat and fluid containing supraumbilical hernia which measures approximately 4.2 cm. There is fat stranding both within and adjacent to the hernia sac. This also mild fat stranding within the mid omentum deep to the hernia site. Therefore, these findings favor an incarcerated/strangulated fat- containing ventral hernia with a developing omental infarct. 2. Additional findings as described above. ACT 112: Negative or not required by law. Electronically signed by: Eliud Carter M.D. 04/04/2020 4:38 PM Dictated: 04/04/20 163Transcribed: 04/04/20 163
[2020-04-04] MEDS ORDERED: BUPIVACAINE 0.5 % 5 MG/1 ML MPF 30ML VIAL ONE (18:12)
[2020-04-04] MEDS ORDERED: ceFAZolin 2000MG 2,000 MG/15 ML SYR IV ONE (18:47)
[2020-04-04] MEDS ORDERED: GLYCOPYRROLATE 0.2 MG/ML VIAL ONE (19:11)
[2020-04-04] MEDS ORDERED: NEOSTIGMINE METHYLSULFATE 5 MG/5 ML SYR ONE (19:11)
[2020-04-04] MEDS ORDERED: ACETAMINOPHEN 1,000 MG/100 ML VIAL IV STA (19:26)
--- NOTE | 2020-04-04 19:26 | Post Operative Brief Note ---
PG Immediate Post Op with CF Date of Surgery April 04, 2020 Pre & Post Diagnosis Operation Date: 04/04/20 17:00 Pre-Op Diagnosis: Abdominal pain Post-Op Diagnosis: Incarcerated ventral hernia, strangulated tissue I identified the patient and participated in the time-out.: Yes Procedure Operation Date: 04/04/20 17:00 Actual Procedures p Strangulated Ventral Hernia Repair(Not Applicable) - Paul Story MD, FACS Surgeon Paul Story MD, FACS Extension Educator Andreas Hartman Estimated Blood Loss 20 Findings Consistent with Post-Op Diagnosis Specimens Specimen Description: Permanent specimen: A. Hernia contents Drains Valer[place] Drain (15 round)
[2020-04-04] MEDS ORDERED: ACETAMINOPHEN 1000 MG/100 ML IV IV ONE (19:56)
[2020-04-04] MEDS ORDERED: HYDROmorphone INJ 1 MG/ML SYRINGE ONE (20:02)
[2020-04-04] MEDS: HYDROmorphone INJ 1 MG/ML SYRINGE IV PRN ×9 (20:04→23:28)
--- NOTE | 2020-04-04 20:51 | Anesthesiology Progress Note ---
Date of Service April 04, 2020 Anesthesia Post Procedure Vital Signs Vital Signs: Temp Pulse Pulse Pulse Resp BP BP 04/04/20 20:40 36.1 C L 52 L 17 110/73 04/04/20 20:30 51 L 14 114/68 04/04/20 20:20 58 L 20 108/70 04/04/20 20:10 61 14 103/62 04/04/20 20:00 59 L 15 115/65 04/04/20 19:50 58 L 14 116/62 04/04/20 19:43 36.5 C 64 16 123/88 04/04/20 17:54 36.7 C 60 16 152/59 H 04/04/20 17:30 62 22 125/81 04/04/20 17:00 59 L 14 115/70 04/04/20 16:00 60 14 112/61 04/04/20 14:27 36.5 C 95 H 17 133/86 Pulse Ox 04/04/20 20:40 96 04/04/20 20:30 96 04/04/20 20:20 96 04/04/20 20:10 100 04/04/20 20:00 100 04/04/20 19:50 100 04/04/20 19:43 100 04/04/20 17:54 96 04/04/20 17:30 04/04/20 17:00 96 04/04/20 16:00 97 04/04/20 14:27 96 Pain Intensity Abdomen: Pain Intensity: 2 Transfer of Care Handoff Completed per policy Notes Mental Status: alert / awake / arousable Patient Amnestic to Procedure: Yes Nausea / Vomiting: adequately controlled Pain: adequately controlled Airway Patency, RR, SpO2: stable & adequate BP & HR: stable & adequate Hydration State: stable & adequate Anesthetic Complications: no major complications apparent and Pt Satisfied with anesthetic care
[2020-04-04] MEDS ORDERED: HYDROCODONE/ACETAMOPHEN 5/325MG TAB PO PRN ×2 (21:14)
[2020-04-04] MEDS: SODIUM CHLORIDE 0.9% 500 ML IV SCH (21:14)
[2020-04-04] MEDS ORDERED: PROMETHAZINE HCL 12.5 MG in SODIUM CHLORIDE 0.9% 50 ML IV PRN (21:14)
[2020-04-04] MEDS ORDERED: PROMETHAZINE HCL 25 MG in SODIUM CHLORIDE 0.9% 50 ML IV PRN (21:14)
[2020-04-04] MEDS: TOPIRAMATE 100 MG TAB PO SCH (21:14)
[2020-04-04] MEDS ORDERED: HYDROmorphone INJ 0.5 MG/0.5 ML SYR IV PRN (21:14)
[2020-04-04] MEDS: FLUoxetine HCL 20 MG CAP PO SCH (21:14)
[2020-04-04] MEDS ORDERED: ALBUTEROL HFA 8 GM INHALER INH PRN (21:14)
[2020-04-04] MEDS ORDERED: ACETAMINOPHEN 325 MG TAB PO PRN (21:14)
[2020-04-04] MEDS: SUCRALFATE 1 GM TAB PO SCH (22:15)
[2020-04-04] MEDS: ceFAZolin 2000MG 2,000 MG/15 ML SYR IV SCH (23:22)
--- NOTE | 2020-04-05 01:28 | Operative Report (OR) ---
DATE OF OPERATION: 04/04/2020 NAME OF OPERATION: Strangulated ventral hernia repair. PREOPERATIVE DIAGNOSIS: Incarcerated strangulated ventral hernia. POSTOPERATIVE DIAGNOSIS: Incarcerated strangulated ventral hernia. STAFF SURGEON: Paul Story MD. SUPERVISOR PLASMA: GELA Crow. ANESTHESIA: General. DESCRIPTION OF PROCEDURE: The patient was brought in the operating room and placed on the operating table in supine position. Her abdomen was prepped and draped in usual fashion. 0.5% plain Marcaine was used to anesthetize skin and subcutaneous tissue just above the umbilicus. Transverse incision was made carrying dissection down identifying the hernia sac. The patient had significant adipose tissue and the wound was relatively deep. The hernia sac was dissected from around the surrounding tissue. It was opened. It did contain what appeared to be preperitoneal adipose tissue and a really small segment of what appeared to be infarcted tissue approximately 2-3 cm in length. It was not bowel. It could have been a small segment of omentum. This was excised. The majority of the sac wall was also excised and oversewn using 0 chromic suture. My timber management assistant did help with prepping, draping, repair of the hernia and closure of the wound. The defect was approximately 2.5 cm. It was closed using interrupted #1 Ethibond suture. A 15 round Valeriano-[place] drain placed into the wound, secured to the skin using 3-0 nylon suture. Deep tissue reapproximated using 2-0 plain suture and then the skin reapproximated using 4-0 nylon suture. The patient was transferred to recovery room area in stable condition. I attest to the content of the Intraoperative Record and any orders documented therein. Any exception s are noted below.
[2020-04-05] MEDS: HYDROmorphone INJ 1 MG/ML SYRINGE IV PRN ×4 (04:17→17:39)
[2020-04-05] MEDS: LEVOTHYROXINE SODIUM 150 MCG TABLET PO SCH (05:43)
[2020-04-05 06:37] LABS: Basophils # (auto) 0.01 K/uL (0-0.2); Basophils % (auto) 0.1 %; Eosinophils # (auto) 0.01 K/uL (0-0.5); Eosinophils % (auto) 0.1 %; Hematocrit (blood only) 43.4 % (37-47); Hemoglobin 14.2 g/dL (12.0-16.0); Immature Granulocytes # (auto) 0.02 K/uL (0.00-0.02); Immature Granulocytes % (auto) 0.2 %; Lymphocytes # (auto) 0.75 K/uL (1.2-3.4); Lymphocytes % (auto) 7.8 %; Mean Corpuscular Hemoglobin 30.8 pg (25-34); Mean Corpuscular Hgb Conc 32.7 g/dL (32-36); Mean Corpuscular Volume 94.1 fL (80-100); Mean Platelet Volume 13.8 fL (7.4-10.4); Monocytes % (auto) 3.1 %; Neutrophils # (auto) 8.48 K/uL (1.4-6.5); Neutrophils % (auto) 88.7 %; Platelet Count 179 K/uL (130-400); RDW Standard Deviation 47.9 fL (36.4-46.3); Red Blood Count 4.61 M/uL (4.2-5.4); White Blood Count 9.57 K/uL (4.8-10.8)
--- NOTE | 2020-04-05 06:44 | Surgery Progress Note ---
Date of Service April 05, 2020 Assessment & Plan (1) H/O hernia repair: Patient status post strangulated ventral hernia repair No bowel resection She is doing relatively well with MAME drain in place She does require IV pain medication the form of Dilaudid and does take daily Suboxone She will be in the hospital additional day or 2 and I will ask pain therapy to help me with p.o. pain meds at home Admission and Anticipated Discharge Date Admission Date: April 04, 2020 Results & Data ([facility]) Vital Signs (Past 12 Hours) Vital Signs Temp Pulse Pulse Resp BP BP Pulse Ox 04/05/20 03:47 36.6 C 73 14 108/69 96 04/05/20 00:10 36.4 C L 61 14 115/64 94 04/04/20 23:10 36.6 C 63 14 110/68 95 04/04/20 22:14 36.4 C L 63 16 101/63 94 04/04/20 21:45 36.8 C 60 14 105/61 95 04/04/20 21:10 36.8 C 12 115/77 95 04/04/20 20:50 52 L 15 111/67 96 04/04/20 20:40 36.1 C L 52 L 17 110/73 96 04/04/20 20:30 51 L 14 114/68 96 04/04/20 20:20 58 L 20 108/70 96 04/04/20 20:10 61 14 103/62 100 04/04/20 20:00 59 L 15 115/65 100 04/04/20 19:50 58 L 14 116/62 100 04/04/20 19:43 36.5 C 64 16 123/88 100 PG Care Time/CCT Total # of Minutes Spent Total Time Spent with Patient: Total time spent is greater than 50% in coordination of care (as documented) at patient's floor/unit and/or counseling patient: Coding Level of Care Code None Diagnoses H/O hernia repair Z98.890; Z87.19
[2020-04-05 07:04] LABS: BUN Creatinine Ratio 11.5 (10-20); Calcium 8.2 mg/dl (8.5-10.1); Creatinine Clr Calc Pharmacy 101.1 ml/min; Est GFR (African American) 90.8; Est GFR (Non-African American) 78.3; Potassium 3.9 mmol/L (3.5-5.1)
[2020-04-05 07:06] LABS: Albumin Globulin Ratio 0.9 (0.9-2); Bilirubin,Total 0.4 mg/dl (0.2-1); Globulin 3.2 gm/dl (2.5-4.0); Phosphorus 2.8 mg/dl (2.5-4.9); Total Protein 6.2 gm/dl (6.4-8.2)
[2020-04-05] MEDS: SODIUM CHLORIDE 0.9% 500 ML IV SCH ×2 (07:20→16:31)
[2020-04-05] MEDS ORDERED: oxyCODONE HCL SOLN 5 MG/5 ML UDC PO PRN (08:22)
[2020-04-05] MEDS: IBUPROFEN 600 MG TAB PO PRN (08:26)
[2020-04-05] MEDS: ceFAZolin 2000MG 2,000 MG/15 ML SYR IV SCH ×3 (08:27→23:21)
[2020-04-05] MEDS: HEPARIN SOD 5,000 UNIT/0.5 ML VIAL SQ SCH ×2 (08:27→21:47)
[2020-04-05] MEDS: SUCRALFATE 1 GM TAB PO SCH ×4 (08:27→21:49)
[2020-04-05] MEDS: TOPIRAMATE 100 MG TAB PO SCH ×2 (08:28→21:50)
--- NOTE | 2020-04-05 08:58 | Pain Management Consultation ---
Date of Consultation April 05, 2020 Assessment & Plan (1) H/O hernia repair: (2) Incarcerated hernia: (3) History of methamphetamine use: For post operative pain we have discussed possible options and today she will tried oral Oxycodone and will continue to have IV Dilaudid PRN breakthrough pain. Tomorrow she will discontinue the IV Dilaudid and rely on oral Oxycodone only. She will continue her chronic Suboxone dosing. I have informed the patient to speak with her prescribing physician of the Suboxone to let them know that she had surgery requiring the prescription of opioids for postoperative pain. She understands and will let the office know. History of Present Illness Reason for Consultation: Post op pain Attending Physician: Paul Story MD, FACS History of Present Illness Ms. Leonard is a 44 year old female that has been admitted for an incarcerated and strangulated ventral hernia. She required surgical repair last night. The patient has been on Suboxone for over a year for methamphetamine addiction which has been effective. Currently she is receiving IV Dilaudid for breakthrough p ain which she states is slightly efficacious towards diminishing her pain. Patient does have oral [place] ordered but with a recent past experience (tooth extraction), the medication provided minimal pain relief. She rates the pain 6/10 currently. Pain Assessment Full Body Front + Back: 1. Allergies Allergy/AdvReac Type Severity Reaction Status Date / Time chlorhexidine Allergy Intermediate RED RASH Verified 04/04/20 15:52 bupropion Allergy Unknown Unknown Verified 04/05/20 08:27 venlafaxine Allergy Unknown Unknown Verified 04/05/20 08:27 Home Medications Medication Instructions Recorded Confirmed Type fluoxetine 40 mg capsule 40 mg PO HS 11/14/19 04/04/20 History levothyroxine 150 mcg capsule 150 mcg PO QAM 11/14/19 04/04/20 History topiramate 100 mg tablet 100 mg PO BID 11/14/19 04/04/20 History albuterol sulfate 2 puff INHALATION Q6H PRN 11/22/19 04/04/20 History buprenorphine-naloxone 1 - 2 tab SUBLINGUAL DAILY 04/04/20 04/04/20 History sucralfate 1 g PO QID 04/04/20 04/04/20 History Patient History Medical History Abnormal weight gain Asthma inhaler prn Back strain Bilateral hand pain Constipation Degenerative disc disease Depression Disturbance of sleep Edema History of bronchitis History of methamphetamine use History of pneumonia Hot flashes due to menopause Hx of papillary thyroid carcinoma 2012--sx only Hypokalemia Hypothyroidism, postablative Menopause Morbid obesity with BMI of 45.0-49.9, adult Obesity Sleep apnea ? scheduled for sleep study test soon Surgical History History of carpal tunnel surgery of right wrist History of colonoscopy with polypectomy History of esophagogastroduodenoscopy (EGD) History of left oophorectomy History of open reduction and internal fixation (ORIF) procedure left humerus--hardware in place History of ovarian cystectomy History of thyroidectomy, total 2012--d/t cancer History of tooth extraction Family History Father Family history of diabetes mellitus Other No family history of adverse response to anesthesia Social History Smoking Status: Current every day smoker Cigarettes Per Day: 1 pack a day.; Second Hand Exposure: Yes; Hx Alcohol Use: Yes Alcohol type: beer Hx Substance Use: Yes Last Used Substance Other:: Quit substance abuse years ago. Substance Use Type Other:: Patient on Suboxone. Preferred Language: Afghan Communication Ability: Effective Product Designer Required: No Beliefs That Will Affect Care: None Current Living Situation: Alone Feels Safe at Home: Yes Assistive Devices: Denture - Upper and Glasses Physical Exam Physical Exam: GENERAL: This is a 44 year old female. Does not appear in acute distress. Resting comfortably in the hospital bed. HEAD/FACE: Normocephalic and atraumatic. EYES: No drainage or conjunctival injection. ENT: Full dental extraction. Oral mucosa moist. CHEST/AXILLA: Chest movement symmetrical. No deformities noted. ABDOMEN/GI: Incision not inspected. SKIN: [place], warm and dry. No rash noted. MS/EXTREMITY: Moving extremities appropriately. NEURO: Alert and appears oriented. Speech is fluent. Cranial Nerves are grossly intact. PSYCH: Alert, pleasant, affect is calm Results (Pain Clinic) Diagnostic Review CT Findings: ABDOMEN AND PELVIS CT WITH IV CONTRAST CT DOSE: 1164.27 mGycm HISTORY: epigastric pain TECHNIQUE: Multiaxial CT images of the abdomen and pelvis were performed following the use of intravenous contrast. A dose lowering technique was utilized adhering to the principles of ALARA. COMPARISON STUDY: Abdomen and pelvis CT 02/20/2014. FINDINGS: The lung bases are clear. No pneumoperitoneum. No pneumatosis. No fractures within the visualized osseous structures. There is a fat and fluid containing supraumbilical hernia. The neck of the hernia measures 2.8 cm. The hernia sac measures approximately 4.2 cm. There is fat stranding both within and adjacent to the hernia sac. This also mild fat stranding within the mid omentum deep to the hernia site. Therefore, these findings favor an incarcerated /strangulated fat-containing ventral hernia with a developing omental infarct. There is also a 1.2 cm fat-containing midline ventral hernia on image 151 which is superior to the supraumbilical hernia. Trace pelvic free fluid. This is likely physiologic. The bladder is not well-distended but appears unremarkable. The uterus and right ovary are within normal limits. Multiple hypodensities within the liver. These likely represent cysts. The gallbladder, spleen, adrenal glands, and pancreas are within normal limits. Normal caliber abdominal aorta. No retroperitoneal lymphadenopathy. No hydronephrosis. A few subcentimeter hypodense lesions within the left kidney are technically too small to annie cterize but statistically represent cysts. Normal right kidney. Colonic diverticulosis. No evidence for acute diverticulitis. No bowel wall thickening or obstruction. Normal appendix. IMPRESSION: 1. There is a fat and fluid containing supraumbilical hernia which measures approximately 4.2 cm. There is fat stranding both within and adjacent to the hernia sac. This also mild fat stranding within the mid omentum deep to the hernia site. Therefore, these findings favor an incarcerated/strangulated fat- containing ventral hernia with a developing omental infarct. 2. Additional findings as described above. ACT 112: Negative or not required by law. Electronically signed by: Eliud Carter M.D. 04/04/2020 4:38 PM
[2020-04-05] MEDS: oxyCODONE HCL IR 5 MG TAB (IMMEDIATE RELEASE) PO PRN ×3 (09:21→21:57)
--- NOTE | 2020-04-05 12:56 | Hospitalist Consultation ---
Date of Consultation April 05, 2020 Assessment & Plan (1) Incarcerated hernia: Underwent ventral defect repair 04/04/[address] Story Pain generally controlled with narcotics Diet being advanced as tolerated No fever Continue to monitor Further management per Dr. Story (2) Hypothyroidism, postablative: Radical thyroidectomy in 2012 for thyroid cancer Continue levothyroxine 150 mcg p.o. daily Patient follows with Dr. Wallace Dexter Outpatient management (3) Hx of papillary thyroid carcinoma: Radical thyroidectomy as above Continue levothyroxine (4) History of methamphetamine use: Patient states that she has not used methamphetamine since 2016 Started Suboxone about 1 year ago Patient appears to be stable without any lability Patient stated to desire to wean Suboxone. I advised her to discuss that with whoever is prescribing (5) Tobacco abuse: Tobacco abuse history since age 15 Continues smoke about 1 pack/day Denies need for NicoDerm patch Discussed need for abstention Patient not interested at this time but would like to cut back on her own. (6) Disturbance of sleep: Highly suspicious for sleep apnea At this time no CPAP or BiPAP use is secondary to abdominal surgery Patient apparently scheduled soon for polysomnography Continue incentive spirometry Head of bed greater than 30 degrees Continue outpatient management (7) DVT prophylaxis: Continue SCDs Thank you for including us in the care of this patient. We will continue to follow with you. Supervising Physician Co-Signing Physician Notes I personally saw and examined the patient. I verified all rowley points and agree with GELA Mckeon with the following exceptions and/or additions: 44 year old post op incarcerated inguinal hernia. Main current concern is cramping. Also history of constipation, last BM a day before operation. Passing gas but no bowel movement post operatively. O/E Abdo SNT, hypoactive BS A/P See above Will also prescribe Bentyl for her abdominal cramps as needed and start on miralax in AM to aid bowel movements with history of constipation. History of Present Illness Attending Physician: Paul Story MD, FACS History of Present Illness Attending: Dr. Scott Potter This is a 44-year-old female that presented for belly pain and was found to have a strangulated umbilical hernia on 04/04/2020. She was taken to the operating theater by Dr. Story and underwent repair of incarcerated strangulated ventral hernia. Estimated blood loss was 20 mL. Patient is seen in room 352 bed 2 for medical consultation and management. Patient has a past medical history including history of methamphetamine use. Her last use was 2015. For about the last year she has been on Suboxone. Patient also has a history of thyroid cancer with a radical thyroidectomy in 2012. She was on thyroid replacement since that time. She has history of tobacco abuse since age 15 with 1 pack/day. History of childhood asthma. History of tooth loss secondary to methamphetamine use. History of Adderall abuse. Patient also has obesity with a BMI of 46.9 kg/m and a current weight of 120.1 kg. The patient has multiple tattoos and states the majority have been done professionally. She has had hepatitis testing which has been negative. She also denies positive HIV testing. The patient states that she has some abdominal pain at the site of the surgery. Otherwise she has no pain. She denies fever, chills, sweats, rigors. She has no urge for nicotine at this point and is refusing NicoDerm patch. She has no nausea or vomiting. She has good bowel sounds. Diet has been advanced by Dr. Story and she is tolerating well. She denies any back pain, chest pain, palpitations. The patient has no other acute complaints. 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 She has no children. Allergies Allergy/AdvReac Type Severity Reaction Status Date / Time chlorhexidine Allergy Intermediate RED RASH Verified 04/04/20 15:52 bupropion Allergy Unknown Unknown Verified 04/05/20 08:27 venlafaxine Allergy Unknown Unknown Verified 04/05/20 08:27 Home Medications Medication Instructions Recorded Confirmed Type fluoxetine 40 mg capsule 40 mg PO HS 11/14/19 04/04/20 History levothyroxine 150 mcg capsule 150 mcg PO QAM 11/14/19 04/04/20 History topiramate 100 mg tablet 100 mg PO BID 11/14/19 04/04/20 History albuterol sulfate 2 puff INHALATION Q6H PRN 11/22/19 04/04/20 History buprenorphine-naloxone 1 - 2 tab SUBLINGUAL DAILY 04/04/20 04/04/20 History sucralfate 1 g PO QID 04/04/20 04/04/20 History cephalexin [Keflex] 500 mg PO TID #15 cap 04/05/20 Rx oxycodone 5 - 10 mg PO Q6H PRN #30 tab 04/05/20 Rx Patient History Medical History (Updated 04/05/20 @ 13:57 by Grupo Mckeon PA-C) Abnormal weight gain Asthma inhaler prn Back strain Bilateral hand pain Constipation Degenerative disc disease Depression Disturbance of sleep Edema History of bronchitis History of methamphetamine use Currently on Suboxone History of pneumonia Hot flashes due to menopause Hx of papillary thyroid carcinoma 2012--sx only Hypokalemia Hypothyroidism, postablative Menopause Morbid obesity with BMI of 45.0-49.9, adult Obesity Sleep apnea ? scheduled for sleep study test soon Tobacco abuse Surgical History History of carpal tunnel surgery of right wrist History of colonoscopy with polypectomy History of esophagogastroduodenoscopy (EGD) History of left oophorectomy History of open reduction and internal fixation (ORIF) procedure left humerus--hardware in place History of ovarian cystectomy History of thyroidectomy, total 2012--d/t cancer History of tooth extraction Family History Father Family history of diabetes mellitus Other No family history of adverse response to anesthesia Social History Smoking Status: Current every day smoker Cigarettes Per Day: 1 pack a day.; Second Hand Exposure: Yes; Hx Alcohol Use: Yes Alcohol type: beer Hx Substance Use: Yes Last Used Substance Other:: Quit substance abuse years ago. Substance Use Type Other:: Patient on Suboxone. Preferred Language: Faroese Communication Ability: Effective Instrument Engineer Required: No Beliefs That Will Affect Care: None Current Living Situation: Alone Feels Safe at Home: Yes Assistive Devices: Glasses Review of Systems Review of Systems: All systems reviewed & are unremarkable except as noted in HPI & below Physical Exam Physical Exam: GENERAL : No acute distress. Pleasant EYES: No icterus, gaze conjugate NOSE: No evidence of epistaxis MOUTH: No lesions or candidiasis NECK: Supple LUNGS: CTA B/L, no wheezes, rales or rhonchi HEART: Regular, rate controlled ABDOMEN: Soft, NT, ND, BS Present. No high-pitched sounds. Dressing dry and intact over ventral hernia repair. Some tenderness over the site of repair only. EXTREMITIES: No LE edema, pedal pulses intact NEURO: A&OX3 Results & Data Results & Data ([facility]) Vital Signs (Past 12 Hours) Vital Signs Temp Pulse Resp BP BP Pulse Ox 04/05/20 07:45 36.8 C 54 L 18 102/61 93 04/05/20 03:47 36.6 C 73 14 108/69 96 Laboratory Results 04/05/20 06:10 04/05/20 06:10 Diagnostic Findings ABDOMEN AND PELVIS CT WITH IV CONTRAST 04/04/2020 CT DOSE: 1164.27 mGycm HISTORY: epigastric pain TECHNIQUE: Multiaxial CT images of the abdomen and pelvis were performed following the use of intravenous contrast. A dose lowering technique was utilized adhering to the principles of ALARA. COMPARISON STUDY: Abdomen and pelvis CT 02/20/2014. FINDINGS: The lung bases are clear. No pneumoperitoneum. No pneumatosis. No fractures within the visualized osseous structures. There is a fat and fluid containing supraumbilical hernia. The neck of the hernia measures 2.8 cm. The hernia sac measures approximately 4.2 cm. There is fat stranding both within and adjacent to the hernia sac. This also mild fat stranding within the mid omentum deep to the hernia site. Therefore, these findings favor an incarcerated/strangulated fat-containing ventral hernia with a developing omental infarct. There is also a 1.2 cm fat-containing midline ventral hernia on image 151 which is superior to the supraumbilical hernia. Trace pelvic free fluid. This is likely physiologic. The bladder is not well-distended but appears unremarkable. The uterus and right ovary are within normal limits. Multiple hypodensities within the liver. These likely represent cysts. The gallbladder, spleen, adrenal glands, and pancreas are within normal limits. Normal caliber abdominal aorta. No retroperitoneal lymphadenopathy. No hydronephrosis. A few subcentimeter hypodense lesions within the left kidney are technically too small to characterize but statistically represent cysts. Normal right kidney. Colonic diverticulosis. No evidence for acute diverticulitis. No bowel wall thickening or obstruction. Normal appendix. IMPRESSION: 1. There is a fat and fluid containing supraumbilical hernia which measures approximately 4.2 cm. There is fat stranding both within and adjacent to the hernia sac. This also mild fat stranding within the mid omentum deep to the hernia site. Therefore, these findings favor an incarcerated/strangulated fat- containing ventral hernia with a developing omental infarct. 2. Additional findings as described above. ACT 112: Negative or not required by law. Electronically signed by: Eliud Carter M.D. 04/04/2020 4:38 PM PG Care Time/CCT Total # of Minutes Spent Total Time Spent with Patient: Total time spent is greater than 50% in coordination of care (as documented) at patient's floor/unit and/or counseling patient: 55 minutes Coding Level of Care Code 99729 Inpt Consult Level 4 Diagnoses Incarcerated hernia K46.0 Hypothyroidism, postablative E89.0 Hx of papillary thyroid carcinoma Z85.850 History of methamphetamine use Z87.898 Tobacco abuse Z72.0 Disturbance of sleep G47.9 DVT prophylaxis Z29.9 Time Spent (min) 55
[2020-04-05] MEDS: FLUoxetine HCL 20 MG CAP PO SCH (21:49)
[2020-04-05] MEDS: DICYCLOMINE HCL 20 MG TAB PO PRN (23:20)
[2020-04-06] MEDS: SODIUM CHLORIDE 0.9% 500 ML IV SCH (01:23)
[2020-04-06] MEDS: HYDROmorphone INJ 1 MG/ML SYRINGE IV PRN ×2 (01:23→08:35)
[2020-04-06] MEDS: oxyCODONE HCL IR 5 MG TAB (IMMEDIATE RELEASE) PO PRN ×3 (03:18→11:55)
[2020-04-06] MEDS: LEVOTHYROXINE SODIUM 150 MCG TABLET PO SCH (06:07)
[2020-04-06] MEDS: DICYCLOMINE HCL 20 MG TAB PO PRN (06:35)
[2020-04-06] MEDS: TOPIRAMATE 100 MG TAB PO SCH (08:27)
[2020-04-06] MEDS: SUCRALFATE 1 GM TAB PO SCH ×2 (08:27→12:04)
[2020-04-06] MEDS: HEPARIN SOD 5,000 UNIT/0.5 ML VIAL SQ SCH (08:28)
[2020-04-06] MEDS: ceFAZolin 2000MG 2,000 MG/15 ML SYR IV SCH (08:28)
[2020-04-06 08:54] LABS: Mean Corpuscular Hgb Conc 31.7 g/dL (32-36)
[2020-04-06] MEDS ORDERED: POLYETHYLENE (MIRALAX) 17 GM PACK PO SCH (09:00)
[2020-04-06 09:02] LABS: Hematocrit (blood only) 41.6 % (37-47); Hemoglobin 13.2 g/dL (12.0-16.0); Mean Corpuscular Hemoglobin 30.5 pg (25-34); Mean Corpuscular Volume 96.1 fL (80-100); RDW Coefficient of Variation 14.3 % (11.5-14.5); Red Blood Count 4.33 M/uL (4.2-5.4); White Blood Count 6.16 K/uL (4.8-10.8)
[2020-04-06 09:24] LABS: Albumin Level 2.7 gm/dl (3.4-5.0); BUN Creatinine Ratio 11.3 (10-20); Creatinine Clr Calc Pharmacy 79.8 ml/min; Est GFR (African American) 68.2; Est GFR (Non-African American) 58.8; Magnesium 2.1 mg/dl (1.8-2.4); Potassium 3.6 mmol/L (3.5-5.1)
--- NOTE | 2020-04-06 09:24 | Hospitalist Progress Note ---
Date of Service April 06, 2020 Assessment & Plan Admission and Anticipated Discharge Date Admission Date: April 04, 2020 Results & Data Results & Data ([facility]) Vital Signs (Past 12 Hours) Vital Signs Temp Pulse Resp BP Pulse Ox 04/06/20 07:37 36.4 C L 52 L 16 100/65 94 04/06/20 07:33 36.5 C 82 18 141/76 H 98 04/06/20 01:20 67 16 110/52 L 97 04/06/20 00:10 36.8 C 68 20 90/55 L 96 PG Care Time/CCT Total # of Minutes Spent Total Time Spent with Patient: Total time spent is greater than 50% in coordination of care (as documented) at patient's floor/unit and/or counseling patient: Coding
[2020-04-06 09:27] LABS: Basophils # (auto) 0.03 K/uL (0-0.2); Basophils % (auto) 0.5 %; Eosinophils # (auto) 0.15 K/uL (0-0.5); Eosinophils % (auto) 2.4 %; Immature Granulocytes # (auto) 0.01 K/uL (0.00-0.02); Immature Granulocytes % (auto) 0.2 %; Lymphocytes # (auto) 2.57 K/uL (1.2-3.4); Lymphocytes % (auto) 41.7 %; Mean Platelet Volume 13.7 fL (7.4-10.4); Monocytes # (auto) 0.45 K/uL (0.11-0.59); Monocytes % (auto) 7.3 %; Neutrophils # (auto) 2.95 K/uL (1.4-6.5); Neutrophils % (auto) 47.9 %; Platelet Count 142 K/uL (130-400); RBC Morphology Unremarkable
[2020-04-06 09:35] LABS: Albumin Globulin Ratio 0.9 (0.9-2); Bilirubin,Total 0.3 mg/dl (0.2-1); Globulin 3.1 gm/dl (2.5-4.0); Thyroid Stimulating Hormone 3.11 uIu/ml (0.300-4.500); Total Protein 5.8 gm/dl (6.4-8.2)
--- NOTE | 2020-04-06 10:19 | Surgery Progress Note ---
Date of Service April 06, 2020 Assessment & Plan (1) Incarcerated hernia: s/p repair. Overall doing well except for pain - seen by pain management. Appreciate recommendations. will discharge home today with MAME in place. Present on Admission?: Yes Admission and Anticipated Discharge Date Admission Date: April 04, 2020 Subjective Feels well. Wants to go home today. Eating. Pain is still present but "I can be miserable home as well as here". Review of Systems Review of Systems: All systems reviewed & are unremarkable except as noted in HPI & below Physical Exam Gastrointestinal (Abdomen): Inspection/Auscultation: abdomen normal to inspection, normal bowel sounds, + abdominal surgical incision (clean) and + abdominal surgical drain present (serosanguinous); abdomen not distended Results & Data ([facility]) Vital Signs (Past 12 Hours) Vital Signs Temp Pulse Resp BP Pulse Ox 04/06/20 07:37 36.4 C L 52 L 16 100/65 94 04/06/20 07:33 36.5 C 82 18 141/76 H 98 04/06/20 01:20 67 16 110/52 L 97 04/06/20 00:10 36.8 C 68 20 90/55 L 96
[2020-04-06] MEDS: IBUPROFEN 600 MG TAB PO PRN (10:43)
--- NOTE | 2020-04-09 03:29 | Discharge Summary (DS) ---
PRINCIPAL DIAGNOSIS: Incarcerated strangulated ventral hernia. PROCEDURE: The patient underwent open ventral hernia repair. HISTORY OF PRESENT ILLNESS: The patient is a 44-year-old female presenting to the Emergency Room with acute abdominal pain, found on CAT scan to have what appeared to be an incarcerated ventral hernia with possible strangulation and inflammation. She was taken to the operating room on 04/04/2020, where she underwent open incarcerated ventral hernia repair. She did have some infarcted tissue inside the sac, which appeared to be fatty tissue and not bowel. Mesh was not placed because of the potential for infection. Primary closure was obtained and also a MAME drain placed. The patient did relatively well, although does have some difficulty with pain therapy because of prior reliance on medication. She was felt stable for discharge home on 04/06/2020 to be followed in the surgical clinic within a few days to have the drain removed.
== END 2020-04-06 13:49 | disposition home or self-care (01) | DRG 354 ==
LOC: ED 14:21 → 3W 17:42 → ASU 17:42 → ED 17:42 → 3W 19:26 → INTOOBSV 19:26